=== PATIENT | female | born 1935 | race Caucasian/White ===

== ENCOUNTER 2016-05-07 12:35 | Observation (INO) | payer OTHER ==
--- NOTE | 2016-05-07 13:03 | CPEKG ---
Heart Rate: 75 RR Interval: 800 P-R Interval: 156 QRSD Interval: 88 QT Interval: 412 QTC Interval: 461 P [place]: 57 QRS [place]: -20 T Wave [place]: 37 EKG Severity - ABNORMAL ECG - EKG Impression: SINUS RHYTHM EKG Impression: MULTIPLE ATRIAL PREMATURE COMPLEXES EKG Impression: BORDERLINE LEFT AXIS DEVIATION Electronically Signed By: Micheal Martini 07-May-2016 20:06:27
--- NOTE | 2016-05-07 13:08 | EDPHY ---
H & P Stated Complaint: SYNCOPAL EPISODE THIS AM, LACS TO R LEG Time Seen by Provider: 05/07/16 13:08 - Personal History Current Tetanus/Diphtheria Vaccine: Yes Current Tetanus Diphtheria and Acellular Pertussis (TDAP): Yes - Medical/Surgical History Hx Asthma: No Hx Chronic Respiratory Disease: No Hx Diabetes: No Hx Cardiac Disease: No Hx Renal Disease: No Hx Cirrhosis: No Hx Alcoholism: No Hx HIV/AIDS: No Hx Splenectomy or Spleen Trauma: No Other PMH: PMH- HYPOTHYROID, DEPRESSION. PSH- THYROIDECTOMY - Social History Smoking Status: Former smoker Constitutional: Initial Vital Signs Temperature (C) 36.8 C 05/07/16 12:36 Heart Rate 88 05/07/16 12:36 Respiratory Rate 14 05/07/16 12:36 Blood Pressure 119/88 H 05/07/16 12:36 O2 Sat (%) 93 05/07/16 12:36 O2 Delivery Mode Room Air Allergies/Adverse Reactions: No Known Allergies Allergy (Unverified 05/07/16 12:40) Home Medications: Medication Instructions Recorded FLUoxetine 05/07/16 Levothyroxine 05/07/16 Medical Decision Making ED Course/Re-evaluation: CHIEF COMPLAINT: Syncope HISTORY OF PRESENT ILLNESS: 80-year-old female who states that she has been feeling a little ill the last several days. Her physicians at [facility] put her on Mucinex and cough suppressant for an upper respiratory infection. She denies fevers or chills. She denies any prior syncope. She states that although she had been feeling very well with cough and congestion she was in the shower and hot shower when she woke up on the floor of the shower. She fell to the floor and denies any injury except for an abrasion along her right buttocks. She denies any pain in her neck or head. She denies any chest pain chest pressure. She denies any fevers or chills currently. REVIEW OF SYSTEMS: A 10 point review of systems was performed and is negative with the exception of the elements mentioned in the history of present illness. PHYSICAL EXAM: HR, BP, O2 Sat, RR. Temp noted General Appearance: Alert, well hydrated, appropriate, and non-toxic appearing. Head: Atraumatic without scalp tenderness or obvious injury Eyes: Pupils equal, round, reactive to light and accommodation, EOMI, no trauma , no injection. Ears: Clear bilaterally, no perforation, normal landmarks Nose: Atraumatic, no rhinorrhea, clear. Throat: There is no erythema or exudates, no lesions, normal tonsils, mucus membranes moist. Neck: Supple, 2+ carotid upstroke, nontender, no lymphadenopathy. Respiratory: No retractions, no distress, no wheezes, and no accessory muscle use. Lungs are clear to auscultation bilaterally. Cardiovascular: Regular rate and rhythm, no murmurs, rubs, or gallops. Bilateral carotid, radial, dorsalis pedis, and posterior tibial pulses intact. Good capillary refill all extremities. Gastrointestinal: Abdomen is soft, nontender, non-distended, no masses, no rebound, no guarding, no peritoneal signs. Musculoskeletal: Normal active ROM of all extremities, atraumatic. Neurological: Alert, appropriate, and interactive. The patient has normal DTRs and non-focal cranial nerves, motor, sensory, and cerebellar exam. Skin: Abrasion to the right buttocks but not suturable. No rashes, good turgor , no nodules on palpation. Past medical history: Hypothyroidism, mild depression Past surgical history: Thyroidectomy Family history: Noncontributory Social history: Does not abuse tobacco drugs or alcohol, retired, lives independently DIAGNOSTICS/PROCEDURES/CRITICAL CARE TIME: The 12 lead EKG was interpreted by myself. See hard copy and/or "tracemaster" electronic copy for interpretation. Sinus mechanism with a rate of 75 with some PACs but otherwise no ischemia or significant rhythm disturbances. The QT corrected intervals within normal limits. Study: Chest x-ray Indication: Dyspnea Results: Chest x-ray was obtained. The results of the study are Query airways disease with no superimposed acute abnormality identified. The study was read by the radiologist, Dr. Mendoza. I viewed the images myself on the PACS system. Study: CT of the Head Indication: trauma, syncope, elderly Results: CT scan of the head was obtained. The results of the study are Mild periventricular and deep hemispheric white matter change can be seen with small vessel ischemic disease. No evidence for acute intracranial abnormality. The study was read by the radiologist, Dr. Cat. I viewed the images myself on the PACS system. DIFFERENTIAL DIAGNOSIS: The differential diagnosis for the patient's syncope included but was not limited to vasovagal syncope, arrhythmia, dehydration, cardiogenic causes, neurogenic causes, and blood loss. MEDICAL DECISION MAKING: This patient has been somewhat ill lately although she is not meeting sepsis criteria. She has an upper respiratory infection. She believes that it is probably getting slightly better as opposed to worse. She was taking a hot shower when all the sudden she woke up on the ground and obviously had a syncopal episode. She did feel a little lightheaded or slightly dizzy right before this but denies any palpitations chest pain chest pressure or any other symptoms. Head CT is negative. 1445: Spoke with Dr. Rivas, hospitalist. She will admit patient to the [facility] for observation following syncope. - Data Points Laboratory Results: Laboratory Results 05/07/16 13:47 05/07/16 13:47 05/07/16 05/07/16 13:47 13:47 WBC 4.35 10^3/uL 10^3/uL (3.80-9.50) RBC 5.10 10^6/uL 10^6/uL (4.18-5.33) Hgb 16.2 g/dL g/dL (12.6-16.3) Hct 48.2 % H % (38.0-47.0) MCV 94.5 fL fL (81.5-99.8) MCH 31.8 pg pg (27.9-34.1) MCHC 33.6 g/dL g/dL (32.4-36.7) RDW 13.2 % % (11.5-15.2) Plt Count 133 10^3/uL L 10^3/uL (150-400) MPV 11.4 fL fL (8.7-11.7) Neut % (Auto) 71.1 % % (39.3-74.2) Lymph % (Auto) 16.3 % % (15.0-45.0) Terrell % (Auto) 12.0 % % (4.5-13.0) Eos % (Auto) 0.2 % L % (0.6-7.6) Baso % (Auto) 0.2 % L % (0.3-1.7) Nucleat RBC Rel Count 0.0 % % (0.0-0.2) Absolute Neuts (auto) 3.09 10^3/uL 10^3/uL (1.70-6.50) Absolute Lymphs (auto) 0.71 10^3/uL L 10^3/uL (1.00-3.00) Absolute Monos (auto) 0.52 10^3/uL 10^3/uL (0.30-0.80) Absolute Eos (auto) 0.01 10^3/uL L 10^3/uL (0.03-0.40) Absolute Basos (auto) 0.01 10^3/uL L 10^3/uL (0.02-0.10) Absolute Nucleated RBC 0.00 10^3/uL 10^3/uL (0-0.01) Immature Gran % 0.2 % % (0.0-1.1) Immature Gran # 0.01 10^3/uL 10^3/uL (0.00-0.10) Sodium 135 mEq/L mEq/L (134-144) Potassium 4.6 mEq/L mEq/L (3.5-5.2) Chloride 100 mEq/L mEq/L (97-110) Carbon Dioxide 25 mEq/l mEq/l (22-31) Anion Gap 10 mEq/L mEq/L (8-16) BUN 14 mg/dL mg/dL (7-23) Creatinine 0.8 mg/dL mg/dL (0.6-1.0) Estimated GFR > 60 Glucose 98 mg/dL mg/dL (70-100) Calcium 9.3 mg/dL mg/dL (8.5-10.4) Troponin I Pending NT-Pro-B Natriuret Pep Pending Departure - Departure Disposition: [facility] Inpatient Acute Clinical Impression: Syncope Qualifiers: Syncope type: unspecified Qualified Code(s): R55 - Syncope and collapse Condition: Fair
[2016-05-07 14:03] LABS: % IMMATURE GRANULYOCYTES 0.2 % (0.0-1.1); ABSOLUTE IMMATURE GRANULOCYTES 0.01 10^3/uL (0.00-0.10); ADD DIFF? NO; ADD MORPH? NO; ADD SCAN? NO; ATYPICAL LYMPHOCYTE FLAG 20 (0-99); FRAGMENT RBC FLAG 0 (0-99); HEMATOCRIT 48.2 % (38.0-47.0); HEMOGLOBIN 16.2 g/dL (12.6-16.3); LEFT SHIFT FLG 0 (0-99); LIPEMIA HEMOLYSIS FLAG 80 (0-99); MEAN CELL HEMOGLOBIN 31.8 pg (27.9-34.1); MEAN CELL HEMOGLOBIN CONCENTR. 33.6 g/dL (32.4-36.7); MEAN CELL VOLUME 94.5 fL (81.5-99.8); MEAN PLATELET VOLUME 11.4 fL (8.7-11.7); PLATELET CLUMPS FLAG 0 (0-99); PLATELET COUNT 133 10^3/uL (150-400); RED CELL DISTRIBUTION WIDTH 13.2 % (11.5-15.2)
[2016-05-07 14:27] LABS: ANION GAP 10 mEq/L (8-16); CALCIUM 9.3 mg/dL (8.5-10.4); CARBON DIOXIDE 25 mEq/l (22-31); CHLORIDE 100 mEq/L (97-110); CREATININE 0.8 mg/dL (0.6-1.0); GLOMERULAR FILTRATION RATE > 60; GLUCOSE 98 mg/dL (70-100); POTASSIUM 4.6 mEq/L (3.5-5.2); SODIUM 135 mEq/L (134-144)
[2016-05-07 15:08] LABS: TROPONIN I < 0.012 ng/mL (0-0.034)
--- NOTE | 2016-05-07 17:15 | GHP ---
[f rep st] HISTORY AND PHYSICAL DATE OF ADMISSION: 05/07/2016 CHIEF COMPLAINT: Syncope. HISTORY OF PRESENT ILLNESS: Patient is a pleasant 80-year-old female with history of hypothyroidism and depression, presenting after a syncopal episode. Patient has been a suffering from bronchitis for the past 8 days with a productive cough. She was recently prescribed Robitussin with codeine an d took 5 mL at 9:30 last night and then awoke and took another 7 mL. She said she felt very good th is morning because she had not slept very well in the last few days. She decided that she would gabrielle e a hot shower at 8 a.m. She was cleaning her hair and felt dizzy. When she came to, she found her self outside the tub sitting on her buttocks. She laid out a towel for a bit and then had 2 episode s of emesis, yellow color, no blood. She then lied in bed and called her friend approximately 8:30. At that time, she called her PCP at [place], who recommended she come to the emergency room. She d enies prodromal chest pain, palpitations or shortness of breath. She normally walks her dog 5 times a day for 30 minutes each time without any chest pain, shortness of breath or palpitations. She myers s never had an episode like this before. REVIEW OF SYSTEMS: A complete 10-point review of systems was negative, except as noted in HPI. PAST MEDICAL HISTORY: 1. Hypothyroidism. 2. Depression. PAST SURGICAL HISTORY: Partial thyroidectomy. FAMILY HISTORY: Mother with a CVA at age 50. Dad at age 84, unclear. ALLERGIES: Codeine with this reaction. MEDICATIONS: See medication reconciliation. PHYSICAL EXAMINATION: VITAL SIGNS: 36.8, blood pressure 119/88, heart rate 88, respiration 14, 93% on room air. GENERAL: The patient is lying in bed, no acute distress, smiling. HEENT: PERRLA. EOMI. Moist mucous membranes. CV: Regular with an occasional extra beat. No murmurs, gallops or rubs. LUNGS: Clear to auscultation bilaterally. ABDOMEN: Soft, nontender, nondistended. Positiv e bowel sounds. MUSCULOSKELETAL: 5/5 upper and lower extremity strength. NEURO: II through XII i ntact. No focal deficits. PSYCHIATRIC: Alert and oriented x3. LABS: WBC 4.3, hemoglobin 16, hematocrit 48, platelets 133. Sodium 135, potassium 4.6, chloride 10 0, carbon dioxide 25, BUN 14, creatinine 0.8, glucose 98, calcium 9.2. Troponin less than 0.012. B [employer]S PROGRAMMER is 232. Head CT: Mild periventricular and deep hemispheric white matter change can be seen with small vesse l ischemic disease. No evidence for acute intracranial abnormality. Chest x-ray, personally reviewed by me: No evidence of effusion or opacity. EKG, personally reviewed by me: Normal sinus rhythm with PACs. ASSESSMENT AND PLAN: 1. Syncope: Suspect this is vasovagal in setting of hot shower and taking codeine. Patient feels much improved now. Initial EKG and troponin negative for ischemia. Low suspicion for PE, as not hy poxic or tachycardic. We will monitor her in ACU on telemetry. Repeat EKG and troponin. I do not feel further cardiac workup is warranted at this time. 2. Hypothyroidism: Continue levothyroxine. 3. Depression: Prozac. 4. Diet: Regular. 5. Deep venous thrombosis prophylaxis: Ambulatory. DISPOSITION: Patient warrants observation admission given syncope and concern for possible arrhythm ia and warranting telemetry overnight. /[id number]/MODL
[2016-05-07] MEDS: guaiFENesin 600 MG TAB.ER PO PRN (21:34)
[2016-05-08] MEDS ORDERED: LEVOTHYROXINE 112 MCG TAB PO SCH (06:00)
[2016-05-08] MEDS ORDERED: ASPIRIN 81 MG CHEWABLE TAB PO SCH (09:00)
[2016-05-08] MEDS ORDERED: CHOLECALCIFEROL VIT D3 1,000 UNITS TAB PO SCH (09:00)
[2016-05-08] MEDS ORDERED: Herbals/Supplements -Info Only PO SCH (09:00)
[2016-05-08] MEDS ORDERED: FLUoxetine 10 MG CAP PO SCH (09:00)
[2016-05-08] MEDS ORDERED: IOPAMIDOL (ISOVUE 370) 100 ML BTL IV ONE (09:59)
[2016-05-08] MEDS: guaiFENesin 600 MG TAB.ER PO PRN (11:53)
[2016-05-08] MEDS ORDERED: BENZONATATE 100 MG CAP PO PRN (12:25)
[2016-05-08] MEDS ORDERED: IPRATROPIUM/ALBUTEROL 3 ML DEYVIAL IH PRN (12:25)
--- NOTE | 2016-05-08 12:39 | PDDCSUM ---
Discharge Summary Discharge Summary: DISCHARGE SUMMARY FOLLOW-UP ITEMS: Outpatient echocardiogram through PCP office, carotid and vertebral artery ultrasounds DATE OF ADMISSION: 05/07/2016 DATE OF DISCHARGE: 05/08/2016 DISCHARGE DIAGNOSES: 1. Syncope 2. Suspected vasovagal event 3. Premature atrial complexes 4. Possible bronchitis CONSULTATIONS: None PROCEDURES / IMAGING: CT angiograms demonstrating no evidence of pulmonary embolism CHIEF COMPLAINT: Acute syncope SUBJECTIVE: Patient is feeling well at time of discharge, she has had no recurrence of symptoms and she is ambulating well PHYSICAL EXAM ON DISCHARGE: Systolic blood pressure is 100-140, heart rate is 70 to 90, satting well on room air, afebrile overnight, heart rhythm is regular with occasional ectopic beat, 106 systolic murmur at the right sternal border and at the apex, no lower extremity edema, no inspiratory crackles and no expiratory wheezes LABS ON DISCHARGE: EKG with normal sinus rhythm and PACs HOSPITAL COURSE BY PROBLEM: 1. Acute syncope. Patient presented with acute syncope most likely secondary to vasovagal episode in the setting of intolerance to codeine and taking a hot shower. Patient no evidence of tachy arrhythmias on telemetry, had no evidence of intracranial hemorrhage on head CT, did not have any recurrence of symptoms. It is very unlikely that this is secondary to a cardiac valvular abnormality but she does have evidence of left ventricular hypertrophy on chest CT imaging as well as a subtle sternal murmur indicating possible aortic stenosis. Recommend outpatient echocardiogram. She also has moderate left-sided subclavian artery stenosis which is unlikely to have contributed to her presenting event but should be further evaluated with ultrasounds of the carotid and vertebral arteries to ensure that there is no extension of said stenosis. Given that she is currently asymptomatic and she has access to good follow-up care these can be obtained in the short term in the outpatient setting. 2. Suspected vasovagal episode. Patient's clinical presentation is most consistent with vasovagal episode in the setting of hot shower and intolerance to codeine. Consequently recommend that she avoid codeine in the future and she has not demonstrated any recurrence of symptoms. 3. Premature atrial complexes. These were present on telemetry monitoring, without any ventricular arrhythmias, may predispose patient to atrial fibrillation and would recommend outpatient Holter monitor to be arranged through her primary care provider office. 4. Possible bronchitis. Patient has recently been suffering from a cough and she does not currently have any evidence of reactive airways, but has responded poorly to codeine containing cough syrup. Consequently, I have recommended that she utilizes as needed Tessalon and will provide her with a script. She also has an albuterol inhaler at home and she can use this as well. She should follow up with her primary care provider for this issue. DISCHARGE MEDICATIONS: Please see official discharge medication reconciliation sheet in chart , Chava Long as needed. DISCHARGE INSTRUCTIONS: Please have an outpatient Holter monitor placed as well as echocardiogram and carotid ultrasounds.
[2016-05-08 12:56] VITALS: BP 110/70; PULSE 70; RESP 17; TEMP 97.5; O2SAT 94
== END 2016-05-08 13:13 | disposition home or self-care (01) ==
LOC: F1N 17:41
PROVIDERS: ADMIT Internal Medicine; ATTEND Internal Medicine
DX: R55 Syncope and collapse (principal); I49.1 Atrial premature depolarization; J06.9 Acute upper respiratory infection, unspecified; S30.810A Abrasion of lower back and pelvis, initial encounter; W19.XXXA Unspecified fall, initial encounter; Y93.E1 Activity, personal bathing and showering; Y92.012 Bathroom of single-family (private) house as the place of occurrence of the external cause; I77.1 Stricture of artery; R01.1 Cardiac murmur, unspecified; E03.9 Hypothyroidism, unspecified; F32.9 Major depressive disorder, single episode, unspecified; Z87.891 Personal history of nicotine dependence
CPT/HCPCS: 70450; 71020; 71275; 93005; G0378; Q9967